=== PATIENT | male | born 1960 | race Caucasian/White ===

== ENCOUNTER 2022-10-29 11:24 | Observation (INO) | payer OTHER, MEDICARE, MEDICAID ==
[~2022-10-29] VITALS: Ht 175 cm; Wt 111.0 kg
[2022-10-29] VITALS (10 sets, daily range): BP systolic 109–152; BP diastolic 77–103
--- NOTE | 2022-10-29 11:51 | ED Chest Pain ---
General Chief Complaint: Chest Pain Stated Complaint: CHEST PAIN Nursing Triage Note: ARRIVED VIA AMB TO ROOM 02 WITH COMPLAINTS OF CHEST PAIN OFF AND ON FOR A WEEK. WORSE TODAY. TOOK X2 NITRO TODAY APPX 1 HR AGO THAT HELPED BUT NOW ITS BACK. ALSO TOOK A FULL STRENGTH ASPIRIN. Source: patient Exam Limitations: no limitations History of Present Illness Date Seen by Provider: Oct 29, 2022 Time Seen by Provider: 11:30 Initial Comments Patient is a 62-year-old male who presents to the emergency department for evaluation of intermittent chest pain for the last week. States he has been taking his nitroglycerin which seems to transiently improve the pain. States the pains have been worse the last 48 hours. He has taken several nitroglycerin today with short-lived improvement in the pain. He also took a full-strength aspirin. Patient denies any worsening of the pain with exertion. Denies any significant shortness of air. Chronically wears 2 L of oxygen at all times. States he has an extensive cardiac history including several catheterizations and at least 3 stents. Patient denies any diaphoresis or worsening dependent edema. Allergies and Home Medications Allergies Coded Allergies: coconut (Verified Allergy, Unknown, 10/29/22) Patient Home Medication List Home Medication List Reviewed: Yes Review of Systems Review of Systems Constitutional: no symptoms reported EENTM: No Symptoms Reported Respiratory: No Symptoms Reported Cardiovascular: See HPI, Chest Pain Gastrointestinal: No Symptoms Reported Genitourinary: No Symptoms Reported Musculoskeletal: no symptoms reported Skin: no symptoms reported Psychiatric/Neurological: No Symptoms Reported Endocrine: No Symptoms Reported Hematologic/Lymphatic: No Symptoms Reported Past Yfnbsed-Qrplco-Psqlyx Hx Patient Social History Tobacco Use?: Yes Smoking Status: Current Everyday Smoker Substance use?: No Alcohol Use?: No Immunizations Up To Date Second COVID19 Vaccination Idris: UNKNOWN COVID19 Vaccine Paramedic: MODERNA Physical Exam Vital Signs Vital Signs - First Documented 10/29/22 11:25 Temp 36.0 Pulse 84 Resp 16 B/P (MAP) 150/103 (119) Pulse Ox 96 O2 Delivery Nasal Cannula O2 Flow Rate 2.00 Capillary Refill : Less Than 3 Seconds Height, Weight, BMI Height: '" Weight: lbs. oz. kg; 36.00 BMI Method: General Appearance: No Apparent Distress, WD/WN HEENT: PERRL/EOMI, TMs Normal, Normal ENT Inspection, Pharynx Normal Neck: Full Range of Motion, Normal Inspection, Non Tender, Supple Respiratory: Chest Non Tender, Lungs Clear, Normal Breath Sounds, No Accessory Muscle Use, No Respiratory Distress Cardiovascular: Regular Rate, Rhythm Gastrointestinal: Non Tender, Soft Neurologic/Psychiatric: Alert, Oriented x3, No Motor/Sensory Deficits, Normal Mood/Affect Skin: Normal Color, Warm/Dry Progress/Results/Core Measures Results/Orders Lab Results Laboratory Tests Test 10/29/22 11:45 Range/Units White Blood Count 8.4 4.3-11.0 10^3/uL Red Blood Count 6.34 H 4.30-5.52 10^6/uL Hemoglobin 17.4 13.3-17.7 g/dL Hematocrit 52 40-54 % Mean Corpuscular Volume 82 80-99 fL Mean Corpuscular Hemoglobin 27 25-34 pg Mean Corpuscular Hemoglobin Concent 33 32-36 g/dL Red Cell Distribution Width 14.5 10.0-14.5 % Platelet Count 220 130-400 10^3/uL Mean Platelet Volume 9.6 9.0-12.2 fL Immature Granulocyte % (Auto) 1 % Neutrophils (%) (Auto) 64 42-75 % Lymphocytes (%) (Auto) 24 12-44 % Monocytes (%) (Auto) 7 0-12 % Eosinophils (%) (Auto) 3 0-10 % Basophils (%) (Auto) 1 0-10 % Neutrophils # (Auto) 5.4 1.8-7.8 10^3/uL Lymphocytes # (Auto) 2.1 1.0-4.0 10^3/uL Monocytes # (Auto) 0.6 0.0-1.0 10^3/uL Eosinophils # (Auto) 0.3 0.0-0.3 10^3/uL Basophils # (Auto) 0.1 0.0-0.1 10^3/uL Immature Granulocyte # (Auto) 0.1 0.0-0.1 10^3/uL Prothrombin Time 12.4 12.2-14.7 SEC INR Comment 0.9 0.8-1.4 Activated Partial Thromboplast Time 30 24-35 SEC Sodium Level 137 135-145 MMOL/L Potassium Level 4.0 3.6-5.0 MMOL/L Chloride Level 105 98-107 MMOL/L Carbon Dioxide Level 22 21-32 MMOL/L Anion Gap 10 5-14 MMOL/L Blood Urea Nitrogen 18 7-18 MG/DL Creatinine 0.88 0.60-1.30 MG/DL Estimat Glomerular Filtration Rate 97 BUN/Creatinine Ratio 20 Glucose Level 158 H 70-105 MG/DL Calcium Level 9.0 8.5-10.1 MG/DL Corrected Calcium 8.8 8.5-10.1 MG/DL Magnesium Level 1.8 1.6-2.4 MG/DL Total Bilirubin 0.8 0.1-1.0 MG/DL Aspartate Amino Transf (AST/SGOT) 16 5-34 U/L Alanine Aminotransferase (ALT/SGPT) 24 0-55 U/L Alkaline Phosphatase 108 40-136 U/L Troponin I < 0.028 <0.028 NG/ML Total Protein 7.2 6.4-8.2 GM/DL Albumin 4.2 3.2-4.5 GM/DL My Orders Orders - ESTRADA SUAREZ [facility] Cbc With Automated Diff (10/29/22 11:47) Magnesium (10/29/22 11:47) Chest 1 View, Ap/Pa Only (10/29/22 11:47) Comprehensive Metabolic Panel (10/29/22 11:47) Protime With Inr (10/29/22 11:47) Partial Thromboplastin Time (10/29/22 11:47) O2 (10/29/22 11:47) Monitor-Rhythm Ecg Trace Only (10/29/22 11:47) Ed Iv/Invasive Line Start (10/29/22 11:47) Troponin I [place] (10/29/22 11:47) Nitroglycerin 0.4 Mg Btl 25's (Nitrostat (10/29/22 12:00) Ed Admission (Communication) (10/29/22 13:12) Medications Given in ED Current Medications Medications Dose Ordered Sig/Ronit Route Start Time Stop Time Status Last Admin Dose Admin Nitroglycerin 0.4 mg UD PRN SL 10/29/22 12:00 10/29/22 12:10 0.4 MG Vital Signs/I&O 10/29/22 10/29/22 11:25 11:25 Temp 36.0 Pulse 84 Resp 16 B/P (MAP) 150/103 (119) Pulse Ox 96 O2 Delivery Nasal Cannula Room Air O2 Flow Rate 2.00 Blood Pressure Mean: 119 Progress Progress Note : Progress Note Patient is nontoxic and well-hydrated on exam. Vital signs are reassuring. Patient is not hypoxic on his home 2 L of oxygen. No tachycardia or hypotension noted. Laboratory evaluation is largely reassuring. Troponin is negative. EKG without acute ischemic change or arrhythmia. However, given patient's high level of risk factors as well as previous coronary artery disease requiring intervention, we will admit for further evaluation and treatment. Dr. Collins with cardiology was consulted and kindly agrees to see the patient in the hospital. Hospitalist kindly agreed to admit. Patient and his are updated on plan of care and understanding verbalized. EKG : EKG Time: 11:36 Rate: 84 Rhythm: Normal Sinus ECG Impression: Nonspecific Changes Consults : Consulting Physician: TIMI COLLINS MD FACP FACC CCDS Consults Notes will see patient in consultation; recommends beta-keara, aspirin, and Plavix or equivalent Departure Impression Primary Impression: Chest pain Qualified Codes: R07.9 - Chest pain, unspecified Disposition: ADMITTED INPATIENT Condition: Improved Admissions Decision to Admit Reason: Admit from ER (General) Decision to Admit/Date: Oct 29, 2022 Time/Decision to Admit Time: 13:10 Departure-Patient Inst. Referrals: GARRISON MONREAL MD (PCP/Family) Primary Care Physician ESTRADA SUAREZ APRN Oct 29, 2022 11:51
[2022-10-29 11:54] LABS: BASOPHILS # (AUTO) 0.1 10^3/uL (0.0-0.1); BASOPHILS % (AUTO) 1 % (0-10); EOSINOPHILS # (AUTO) 0.3 10^3/uL (0.0-0.3); EOSINOPHILS % (AUTO) 3 % (0-10); HEMATOCRIT 52 % (40-54); HEMOGLOBIN 17.4 g/dL (13.3-17.7); LYMPHOCYTES # (AUTO) 2.1 10^3/uL (1.0-4.0); LYMPHOCYTES % (AUTO) 24 % (12-44); MEAN CORPUSCULAR HEMOGLOBIN 27 pg (25-34); MEAN CORPUSCULAR HGB CONC 33 g/dL (32-36); MEAN CORPUSCULAR VOLUME 82 fL (80-99); MEAN PLATELET VOLUME 9.6 fL (9.0-12.2); MONOCYTES # (AUTO) 0.6 10^3/uL (0.0-1.0); MONOCYTES % (AUTO) 7 % (0-12); NEUTROPHILS # (AUTO) 5.4 10^3/uL (1.8-7.8); NEUTROPHILS % (AUTO) 64 % (42-75); PLATELET COUNT 220 10^3/uL (130-400); WHITE BLOOD COUNT 8.4 10^3/uL (4.3-11.0)
[2022-10-29] MEDS ORDERED: NITROGLYCERIN 0.4 MG SL TABS BTL 25'S SL PRN ×2 (12:00→14:45)
[2022-10-29 12:02] LABS: ALBUMIN 4.2 GM/DL (3.2-4.5)
[2022-10-29 12:04] LABS: INR 0.9 (0.8-1.4); PROTHROMBIN TIME PATIENT 12.4 SEC (12.2-14.7)
[2022-10-29 12:05] LABS: TOTAL PROTEIN 7.2 GM/DL (6.4-8.2)
[2022-10-29 12:07] LABS: BILIRUBIN,TOTAL 0.8 MG/DL (0.1-1.0)
[2022-10-29 12:09] LABS: CREATININE SERUM 0.88 MG/DL (0.60-1.30)
[2022-10-29 12:12] LABS: MAGNESIUM 1.8 MG/DL (1.6-2.4)
--- NOTE | 2022-10-29 12:27 | Diagnostic Imaging Report ---
Indication: Chest pain. Findings: Lungs clear. No failure, effusion or pneumothorax. Impression: No acute-appearing abnormality. Dictated by: Dictated on workstation # [id number]
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
[2022-10-29] MEDS ORDERED: ONDANSETRON 4 MG/2 ML (SDV) Z0FRAN IV PRN (14:45)
[2022-10-29] MEDS ORDERED: LACTULOSE SYRUP 10GM/15ML (ENULOSE) 30ML UDC PO PRN (14:45)
[2022-10-29] MEDS ORDERED: BISACODYL 10 MG SUPP (DULCOLAX) PR PRN (14:45)
[2022-10-29] MEDS ORDERED: MILK OF MAGNESIA 400 MG/5 ML 30 ML UDC PO PRN (14:45)
[2022-10-29] MEDS ORDERED: PATIENT MAY USE OWN MEDS, ALL PO SCH ×2 (14:45→17:00)
[2022-10-29] MEDS ORDERED: ANTACID SUSP 30 ML UDC (MYLANTA) PO PRN (14:45)
[2022-10-29] MEDS ORDERED: ALPRAZolam 1 MG (XANAX) TAB PO PRN (14:45)
[2022-10-29] MEDS ORDERED: ACETAMINOPHEN 325 MG TABLET PO PRN (14:45)
[2022-10-29] MEDS ORDERED: MELATONIN 3 MG TABLET PO PRN (14:45)
[2022-10-29] MEDS ORDERED: ONDANSETRON 4 MG (ZOFRAN) ORAL DISSOLVE TAB PO PRN (14:45)
[2022-10-29] MEDS ORDERED: diphenhydrAMINE 50 MG/ML INJ (BENADRYL) IVP PRN (14:45)
[2022-10-29] MEDS ORDERED: polyethylene glycoL POWDER 17 GM (MIRALAX) PACK PO PRN (14:45)
[2022-10-29] MEDS ORDERED: diphenhydrAMINE 25 MG TAB (BENADRYL) PO PRN (14:45)
[2022-10-29] MEDS ORDERED: HYDROmorphone 2 MG/ML VIAL (DILAUDID) IV PRN (14:45)
[2022-10-29] MEDS ORDERED: CALCIUM CARBONATE 500 MG (TUMS) TAB.CHEW PO PRN (14:45)
[2022-10-29] MEDS ORDERED: ENOXAPARIN 40 MG/0.4 ML (LOVENOX) SYR SC SCH (15:00)
[2022-10-29] MEDS ORDERED: NS IV 1000 ML 1,000 ML ONE (15:16)
[2022-10-29] MEDS ORDERED: HEParin (CATH LAB) 2,000 ML IV ONE (15:16)
[2022-10-29] MEDS ORDERED: LIDOCAINE 1% INJ 30 ML (XYLOCAINE) VIAL ONE (15:16)
[2022-10-29] MEDS ORDERED: MIDAZOLAM 5 MG/5 ML (VERSED) VIAL ONE (15:23)
[2022-10-29] MEDS ORDERED: fentaNYL INJ 100 MCG/2 ML AMP ONE (15:23)
[2022-10-29] MEDS ORDERED: NS IV 1000 ML 1,000 ML IV SCH (15:30)
[2022-10-29] MEDS ORDERED: diphenhydrAMINE 50 MG/ML INJ (BENADRYL) ONE (15:38)
[2022-10-29] MEDS ORDERED: HEParin 1000 UNIT/ML (10ML VIAL) FOR BOLUS ONE (15:54)
[2022-10-29] MEDS ORDERED: EPTIFIBATIDE BOLUS 10 ML IV ONE ×2 (15:54→16:02)
[2022-10-29] MEDS: inSUlin ASPART (NovoLOG) 1 UNIT/0.01 ML (CHARGE PER UNIT) SC SCH ×2 (16:00→20:42)
[2022-10-29] MEDS ORDERED: CLOPIDOGREL 300 MG (PLAVIX) TABLET PO ONE (16:26)
[2022-10-29] MEDS ORDERED: ASPIRIN 81 MG CHEW (CHILDREN'S ASA) ONE (16:26)
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
--- NOTE | 2022-10-29 16:52 | Cardiac Procedure Note-CS/ASA ---
Pre-Procedure Note Pre-Op Procedure Note Date of Available H&P: Oct 29, 2022 Date H&P Reviewed: Oct 29, 2022 Time H&P Reviewed: 15:50 History & Physical: H&P Reviewed, No changes noted Conscious Sedation Pre-Proced ASA Score 4 For ASA 3 and 4: Consider anesthesia and medical clearance. Also, for patients with a history of failed moderate sedation consider anesthesia. Airway Lungs Heart ASA score ASA 1: a normal healthy patient ASA 2: a patient with a mild systemic disease (mid diabetes, controlled hypertension, obesity ASA 3: a patient with a severe systemic disease that limits activity (angina, COPD, prior Myocardial infarction) ASA 4: a patient with an incapacitating disease that is a constant threat to life (CHF, renal failure) ASA 5: a moribund patient not expected to survive 24 hrs. (ruptured aneurysm) ASA 6: a declared brain- patient whose organs are being harvested. For emergent operations, add the letter E after the classification Mallampati Classification Grade 2 Sedation Plan Analgesia, Amnesia, Plan communicated to team members, Discussed options with patient/fam, Discussed risks with patient/fam The patient is an appropriate candidate to undergo the planned procedure, sedation, and anesthesia. The patient immediately re-assessed prior to indication. TIMI ALEXANDER MD FACP FAC CCDS Oct 29, 2022 16:52
[2022-10-29] MEDS ORDERED: morphine INJ 4 MG/ML 1 ML (VIAL/SYRINGE) IVP PRN (17:00)
[2022-10-29] MEDS ORDERED: RT-ALBUTEROL/IPRATROPIUM 3 ML (DUONEB) VIAL INH PRN (17:00)
[2022-10-29] MEDS: NS IV 1000 ML 1,000 ML IV SCH (17:07)
[2022-10-29] MEDS ORDERED: PANTOPRAZOLE 40 MG (PROTONIX) VIAL IV NR (17:30)
[2022-10-29] MEDS: morphine INJ 4 MG/ML 1 ML (VIAL/SYRINGE) IVP PRN ×2 (18:03→23:39)
[2022-10-29] MEDS: ANTACID SUSP 30 ML UDC (MYLANTA) PO SCH ×2 (18:03→20:42)
[2022-10-29] MEDS: SENNOSIDES 8.6 MG (SENOKOT) TAB PO SCH (19:30)
[2022-10-29] MEDS: DOCUSATE SODIUM 100 MG (COLACE) CAP PO SCH (19:30)
[2022-10-29] MEDS: RT-ALBUTEROL/IPRATROPIUM 3 ML (DUONEB) VIAL INH SCH (22:28)
[2022-10-30] VITALS: BP 153/70
--- NOTE | 2022-10-30 00:34 | CARDIAC CATHETERIZATION ---
DATE OF SERVICE: 10/29/2022 CARDIAC CATHETERIZATION REPORT INDICATION: The patient is a 62-year-old gentleman who is known to have coronary artery disease, who presents with acute coronary syndrome, unstable angina pectoris. In the hospital, he continued to have recurrent chest pains, it would improve with nitroglycerin, but would then recur. Due to continuing symptoms of unstable angina, urgent cardiac catheterization was recommended. Informed consent was obtained. DESCRIPTION OF PROCEDURE: He was brought to the cardiac catheterization laboratory in a fasting state. Right groin was prepared and draped in the usual sterile fashion. A 1% lidocaine was used for local anesthesia. Modified Seldinger technique was used to advance a 5-Ethiopian sheath in the right femoral artery. A 5-Ethiopian JR4 catheter was used for left coronary angiography. A 5-Ethiopian JR4 catheter was used for right coronary angiography. A 5-Ethiopian pigtail catheter was used for left heart catheterization and left ventricular angiography. Subsequently, percutaneous intervention was carried out to the left anterior descending artery and it is described below. PERCUTANEOUS INTERVENTION TO THE LEFT ANTERIOR DESCENDING: We exchanged the sheath over a wire for a 6-Ethiopian sheath. We gave 5000 units of intravenous heparin and a double bolus of Integrilin during the procedure. We used a 6-Ethiopian JL4 guide catheter to engage the left coronary artery. We advanced a BMW wire to cross the lesion in the left anterior descending artery and it was placed in the distal vessel. The stenosis prior to intervention was 95%. The distal flow prior to intervention was FAIZA 2. We carried out balloon angioplasty in the proximal left anterior descending at the site of the lesion with a 2.5 x 5 mm balloon and we then stented the vessel with Skypoint 2.75 x 15 mm stent that was deployed at 15 atmospheres. The stent slightly overlapped the previously stented segment in the proximal and mid portions of the left anterior descending. Following deployment of the stent, there is 0% residual stenosis and the distal flow is FAIZA 3. The patient tolerated the procedure well. This is a right dominant coronary system. Angioplasty equipment was removed. Angiography of the right femoral artery was carried out of the sheath. Mynx was used to achieve hemostasis. HEMODYNAMICS: Left ventricular end diastolic pressure following coronary angiography was 13 mmHg. There was no significant pressure gradient on pullback across the aortic valve. CORONARY ANGIOGRAPHY: Left main coronary artery is free of significant disease. Left anterior descending artery had 20-30% ostial stenosis and 95% proximal stenosis, proximal to the proximal end of a long stented segment in the proximal and mid left anterior descending. This stenosis was successfully stented with a Skypoint 2.75 x 15 mm stent that reduced the stenosis to 0% residual and improved distal flow from FAIZA 2 to FAIZA 3. The distal left anterior descending artery has mild plaques, which were not intervened on. The left circumflex artery has mild plaques. The right coronary artery is dominant and exhibits mild plaques. LEFT VENTRICULAR ANGIOGRAPHY: Left ventricular angiography was carried out in the right anterior oblique projection. Global left ventricular systolic function is normal. Left ventricular ejection fraction is approximately 55-60%. CONCLUSION: 1. Coronary artery disease, primarily consisting of a 95% proximal stenosis of the left anterior descending, which was successfully stented with Skypoint 2.75 x 15 mm stent. The stent slightly overlapped a long stented segment in the left anterior descending. The stented segment shows mild plaques. The distal left anterior descending artery shows mild plaques. Left circumflex and right coronary arteries show mild plaques. Right coronary artery is dominant. 2. Left ventricular end-diastolic pressure 13 mmHg. 3. Left ventricular ejection fraction 55-60%. Job ID: [id number] DocumentID: [id number] Dictated Date: 10/29/2022 17:01:13 Manager Marketing Sales Date: 10/30/2022 00:34:00 Dictated By: TIMI ALEXANDER MD; JENNIFER; JAZP; JAZC; CHANCE
[2022-10-30 03:59] VITALS: BP 100/59
[2022-10-30 05:33] LABS: BASOPHILS # (AUTO) 0.1 10^3/uL (0.0-0.1); BASOPHILS % (AUTO) 1 % (0-10); EOSINOPHILS # (AUTO) 0.3 10^3/uL (0.0-0.3); EOSINOPHILS % (AUTO) 3 % (0-10); HEMATOCRIT 47 % (40-54); HEMOGLOBIN 15.7 g/dL (13.3-17.7); LYMPHOCYTES # (AUTO) 2.3 10^3/uL (1.0-4.0); LYMPHOCYTES % (AUTO) 23 % (12-44); MEAN CORPUSCULAR HEMOGLOBIN 28 pg (25-34); MEAN CORPUSCULAR HGB CONC 33 g/dL (32-36); MEAN CORPUSCULAR VOLUME 83 fL (80-99); MEAN PLATELET VOLUME 9.9 fL (9.0-12.2); MONOCYTES # (AUTO) 0.8 10^3/uL (0.0-1.0); MONOCYTES % (AUTO) 8 % (0-12); NEUTROPHILS # (AUTO) 6.2 10^3/uL (1.8-7.8); NEUTROPHILS % (AUTO) 64 % (42-75); PLATELET COUNT 213 10^3/uL (130-400); WHITE BLOOD COUNT 9.7 10^3/uL (4.3-11.0)
[2022-10-30 05:41] LABS: ALBUMIN 3.8 GM/DL (3.2-4.5); BILIRUBIN,TOTAL 0.6 MG/DL (0.1-1.0); CALCIUM 8.8 MG/DL (8.5-10.1); CREATININE SERUM 0.96 MG/DL (0.60-1.30); POTASSIUM 4.1 MMOL/L (3.6-5.0); TOTAL PROTEIN 6.6 GM/DL (6.4-8.2)
[2022-10-30] MEDS: ANTACID SUSP 30 ML UDC (MYLANTA) PO SCH ×2 (06:00→11:18)
[2022-10-30] MEDS: NS IV 1000 ML 1,000 ML IV SCH (06:20)
--- NOTE | 2022-10-30 06:27 | Short Stay Summary-Hospitalist ---
History of Present Illness HPI/Chief Complaint Chief complaint: Chest pain HPI: This is a 62-year-old male with known history of CAD who presented to the ER with chest pain. He underwent cardiac catheterization with intervention. He is doing well now and denies any pain and wants to go home. Source: patient, old records Exam Limitations: no limitations Date Seen 10/30/22 Time Seen by a Provider: 11:00 Attending Physician Valentina Cedillo MD PCP Admitting Physician: Rose Cota DO Attending Physician: Rose Cota DO Referring Physician TIMI ALEXANDER MD FACP FAC CCDS Date of Admission Oct 29, 2022 at 13:13 Home Medications & Allergies Home Medications Reviewed patient Home Medication Reconciliation performed by pharmacy medication reconciliations certified ophthalmic medical technician and/or nursing. Patients Allergies have been reviewed. Allergies Allergies Coded Allergies coconut (Verified Allergy, Unknown, 10/29/22) Past Fiwgqup-Uizgyw-Vkqoak Hx Patient Social History Marrital Status: Employed/Student: retired Tobacco Use?: Yes Tobacco type used: Cigarettes Smoking Status: Current Everyday Smoker Substance use?: No Alcohol Use?: No Pt feels they are or have been: No Immunizations Up To Date Second COVID19 Vaccination Idris: UNKNOWN Current Status Advance Directives: Yes Advance Directive Location: Family to bring in copy Communicates: Verbally Primary Language: Tajik Preferred Spoken Language: Tajik Is interpretation needed?: No Sensory deficits: Vision impairment, Hearing impairment Implanted or Applied Medical D: Stents Past Medical History Coronary Artery Disease, High Cholesterol, Hypertension Review of Systems Constitutional: see HPI Physical Exam Physical Exam Vital Signs Vital Signs - First Documented 10/29/22 10/29/22 11:25 17:13 Temp 36.0 Pulse 84 Resp 16 B/P (MAP) 150/103 (119) Pulse Ox 96 O2 Delivery Nasal Cannula O2 Flow Rate 2.00 FiO2 21 Capillary Refill : Less Than 3 Seconds Height, Weight, BMI Height: '" Weight: lbs. oz. kg; 36.24 BMI Method: General Appearance: No Apparent Distress, WD/WN, Chronically ill, Obese HEENT: PERRL/EOMI, TMs Normal, Normal ENT Inspection, Pharynx Normal Neck: Full Range of Motion, Normal Inspection, Non Tender, Supple Respiratory: Chest Non Tender, Lungs Clear, Normal Breath Sounds, No Accessory Muscle Use, No Respiratory Distress Cardiovascular: Regular Rate, Rhythm Gastrointestinal: Non Tender, Soft Neurologic/Psychiatric: Alert, Oriented x3, No Motor/Sensory Deficits, Normal Mood/Affect Skin: Normal Color, Warm/Dry Results Results/Procedures Labs Laboratory Tests 10/29/22 11:45 10/30/22 04:45 Patient resulted labs reviewed. Short Stay Diagnosis Discharge Diagnosis-Short Stay Admission Diagnosis NSTEMI Final Discharge Diagnosis NSTEMI Cardiac catheterization with intervention Conclusion Plan Discharge home ROSE COTA DO Oct 30, 2022 06:27
[2022-10-30] MEDS: inSUlin ASPART (NovoLOG) 1 UNIT/0.01 ML (CHARGE PER UNIT) SC SCH ×2 (06:41→11:18)
[2022-10-30] MEDS: RT-ALBUTEROL/IPRATROPIUM 3 ML (DUONEB) VIAL INH SCH (07:08)
[2022-10-30 07:57] VITALS: BP 121/80
[2022-10-30] MEDS: DOCUSATE SODIUM 100 MG (COLACE) CAP PO SCH (08:44)
[2022-10-30] MEDS: SENNOSIDES 8.6 MG (SENOKOT) TAB PO SCH (08:45)
[2022-10-30] MEDS ORDERED: PANTOPRAZOLE 40 MG (PROTONIX) TAB PO SCH (09:00)
[2022-10-30] MEDS ORDERED: ASPIRIN E.C. 81 MG (ECOTRIN) TAB PO SCH (09:00)
[2022-10-30] MEDS ORDERED: CLOPIDOGREL 75 MG (PLAVIX) TABLET PO SCH (09:00)
[2022-10-30] MEDS ORDERED: TIZA-186 PO (09:55)
[2022-10-30] MEDS ORDERED: OMEP20CA18 PO (09:55)
[2022-10-30] MEDS ORDERED: BUPR1PAT2 TD (09:55)
[2022-10-30] MEDS ORDERED: CANA100T PO (09:55)
[2022-10-30] MEDS ORDERED: DICL50TA6 PO (09:55)
[2022-10-30] MEDS ORDERED: DULA1.5P2 SQ (09:55)
[2022-10-30] MEDS ORDERED: MTP25TSR PO (10:59)
[2022-10-30] MEDS ORDERED: PANT40TA52 PO (10:59)
[2022-10-30] MEDS ORDERED: CLOP75TA28 PO (10:59)
[2022-10-30] MEDS ORDERED: ATOR80TA76 PO (10:59)
[2022-10-30] MEDS ORDERED: NITR0.4T42 SL (10:59)
[2022-10-30] MEDS ORDERED: ASPI-1238 PO (10:59)
[2022-10-30 11:19] VITALS: BP 124/76
[2022-10-30 11:52] VITALS: BP 124/76
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
== END 2022-10-30 10:58 | disposition home or self-care (01) ==
LOC: EDUNIT# 11:24 → ER 11:28 → UNDOADMOB 13:13 → CSD 13:13 → UNDODISOB 10-30 11:55
PROVIDERS: ADMIT Internal Medicine; ATTEND Internal Medicine
DX: I25.110 Atherosclerotic heart disease of native coronary artery with unstable angina pectoris (principal); I50.9 Heart failure, unspecified; I48.0 Paroxysmal atrial fibrillation; G47.33 Obstructive sleep apnea (adult) (pediatric); K21.9 Gastro-esophageal reflux disease without esophagitis; J44.9 Chronic obstructive pulmonary disease, unspecified; F17.210 Nicotine dependence, cigarettes, uncomplicated; I21.4 Non-ST elevation (NSTEMI) myocardial infarction; Z86.73 Personal history of transient ischemic attack (TIA), and cerebral infarction without residual deficits
CPT/HCPCS: 36415; 71045; 80053; 80061; 82947; 83735; 84443; 84484; 85025; 85610; 85730; 93005; 93041; 93306; 93458; 96375; 96376; G0378

== ENCOUNTER 2022-11-03 13:46 | Observation (INO) | payer OTHER, MEDICARE, MEDICAID ==
[~2022-11-03] VITALS: Ht 175.3 cm; Wt 108.6 kg
[~2022-11-03 13:46] MED LIST: ASPI-1238 PO; ATOR80TA76 PO; BUPR1PAT2 TD; CANA100T PO; CLOP75TA28 PO; DICL50TA6 PO; DULA1.5P2 SQ; MTP25TSR PO; NITR0.4T42 SL; OMEP20CA18 PO; PANT40TA52 PO; TIZA-186 PO
[2022-11-03 14:03] LABS: BASOPHILS # (AUTO) 0.1 10^3/uL (0.0-0.1); BASOPHILS % (AUTO) 1 % (0-10); EOSINOPHILS # (AUTO) 0.4 10^3/uL (0.0-0.3); EOSINOPHILS % (AUTO) 4 % (0-10); HEMATOCRIT 49 % (40-54); LYMPHOCYTES # (AUTO) 2.1 10^3/uL (1.0-4.0); LYMPHOCYTES % (AUTO) 21 % (12-44); MEAN CORPUSCULAR HEMOGLOBIN 28 pg (25-34); MEAN CORPUSCULAR HGB CONC 33 g/dL (32-36); MEAN CORPUSCULAR VOLUME 84 fL (80-99); MEAN PLATELET VOLUME 9.6 fL (9.0-12.2); MONOCYTES # (AUTO) 0.8 10^3/uL (0.0-1.0); MONOCYTES % (AUTO) 8 % (0-12); NEUTROPHILS # (AUTO) 6.6 10^3/uL (1.8-7.8); NEUTROPHILS % (AUTO) 66 % (42-75); PLATELET COUNT 236 10^3/uL (130-400)
[2022-11-03 14:14] LABS: ALBUMIN 4.2 GM/DL (3.2-4.5); INR 0.9 (0.8-1.4); PROTHROMBIN TIME PATIENT 12.5 SEC (12.2-14.7)
[2022-11-03 14:15] LABS: POTASSIUM 3.9 MMOL/L (3.6-5.0)
[2022-11-03 14:16] LABS: CALCIUM 9.1 MG/DL (8.5-10.1)
[2022-11-03 14:19] LABS: BILIRUBIN,TOTAL 0.8 MG/DL (0.1-1.0)
[2022-11-03 14:20] LABS: CREATININE SERUM 1.04 MG/DL (0.60-1.30)
[2022-11-03 14:23] LABS: MAGNESIUM 1.9 MG/DL (1.6-2.4)
[2022-11-03 14:34] LABS: CREATINE KINASE MB 6.6 NG/ML (<6.6)
[2022-11-03] MEDS ORDERED: ASPIRIN 81 MG CHEW (CHILDREN'S ASA) PO ONE (14:45)
[2022-11-03] MEDS ORDERED: NITROGLYCERIN 0.4 MG SL TABS BTL 25'S SL PRN (14:45)
--- NOTE | 2022-11-03 14:48 | Diagnostic Imaging Report ---
INDICATION: Pain. COMPARISON: 10/29/2022. FINDINGS: Lungs are clear. No failure, effusion, or pneumothorax. IMPRESSION: Negative. Dictated by: Dictated on workstation # [id number]
--- NOTE | 2022-11-03 15:09 | ED Chest Pain ---
General Chief Complaint: Chest Pain Stated Complaint: CHEST PAINS Source: patient Exam Limitations: no limitations History of Present Illness Date Seen by Provider: Nov 03, 2022 Time Seen by Provider: 14:50 Allergies and Home Medications Allergies Coded Allergies: coconut (Verified Allergy, Unknown, 10/29/22) Patient Home Medication List Home Medication List Reviewed: Yes Aspirin (Aspirin EC) 81 Mg Tablet.dr, 81 MG PO DAILY Prescribed by: ESTELA TRIPLETT on 10/30/22 1059 Atorvastatin Calcium (Atorvastatin Calcium) 80 Mg Tablet, 80 MG PO HS Prescribed by: ESTELA TRIPLETT on 10/30/22 1059 Buprenorphine (Butrans) 10 Mcg/Hour Patch.tdwk, 1 EACH TD WEEK Prescribed by: RUDDY GUTIERREZ on 10/30/22 09 Canagliflozin (Invokana) 100 Mg Tablet, 100 MG PO DAILY Prescribed by: RUDDY GUTIERREZ on 10/30/22954 Clopidogrel Bisulfate (Clopidogrel) 75 Mg Tablet, 75 MG PO DAILY Prescribed by: ESTELA TRIPLETT on 10/30/22 105 Diclofenac Sodium (Diclofenac Sodium) 50 Mg Tablet.dr, 50 MG PO QID Prescribed by: RUDDY GUTIERREZ on 10/30/22 09 Dulaglutide (Trulicity) 1.5 Mg/0.5 Ml Pen.injctr, 1.5 MG SQ WEEK Prescribed by: RUDDY GUTIERREZ on 10/30/22954 Metoprolol Succinate (Metoprolol Succinate) 25 Mg Tab.er.24h, 25 MG PO DAILY Prescribed by: ESTELA TRIPLETT on 10/30/22 105 Nitroglycerin (Nitroglycerin) 0.4 Mg Tab.subl, 0.4 MG SL UD PRN for CHEST PAIN (ANGINA) Prescribed by: ESTELA TRIPLETT on 10/30/22 105 Pantoprazole Sodium (Pantoprazole Sodium) 40 Mg Tablet.dr, 40 MG PO DAILY Prescribed by: ESTELA TRIPLETT on 10/30/22 1059 Tizanidine HCl (Tizanidine HCl) 4 Mg Tablet, 4 MG PO TID PRN for MUSCLE SPASMS Prescribed by: RUDDY GUTIERREZ on 10/30/22 09 Discontinued Medications Omeprazole (Omeprazole) 20 Mg Capsule.dr, 20 MG PO DAILY Prescribed by: RUDDY GUTIERREZ on 10/30/22954 Review of Systems Review of Systems Constitutional: see HPI Past Ooamgnh-Duyzup-Mtrauc Hx Patient Social History Tobacco Use?: Yes Substance use?: No Alcohol Use?: No Pt feels they are or have been: No Immunizations Up To Date Influenza Vaccine Up-to-Date: No; Not Current First/Initial COVID19 Vaccinat: UNKNOWN Second COVID19 Vaccination Idris: UNKNOWN Third COVID19 Vaccination Date: UNKNOWN Past Medical History Surgery/Hospitalization HX: STENTS, SHOULDER, ANKLE, FACIAL SURGERY, HERNIA MESH, BACK X4 HTN, DM, HLD, ASTHMA, Coronary Artery Disease, High Cholesterol, Hypertension Physical Exam Vital Signs Capillary Refill : Height, Weight, BMI Height: '" Weight: lbs. oz. kg; 36.24 BMI Method: Progress/Results/Core Measures Results/Orders Lab Results Laboratory Tests Test 11/03/22 13:54 Range/Units White Blood Count 10.0 4.3-11.0 10^3/uL Red Blood Count 5.78 H 4.30-5.52 10^6/uL Hemoglobin 16.0 13.3-17.7 g/dL Hematocrit 49 40-54 % Mean Corpuscular Volume 84 80-99 fL Mean Corpuscular Hemoglobin 28 25-34 pg Mean Corpuscular Hemoglobin Concent 33 32-36 g/dL Red Cell Distribution Width 14.6 H 10.0-14.5 % Platelet Count 236 130-400 10^3/uL Mean Platelet Volume 9.6 9.0-12.2 fL Immature Granulocyte % (Auto) 1 % Neutrophils (%) (Auto) 66 42-75 % Lymphocytes (%) (Auto) 21 12-44 % Monocytes (%) (Auto) 8 0-12 % Eosinophils (%) (Auto) 4 0-10 % Basophils (%) (Auto) 1 0-10 % Neutrophils # (Auto) 6.6 1.8-7.8 10^3/uL Lymphocytes # (Auto) 2.1 1.0-4.0 10^3/uL Monocytes # (Auto) 0.8 0.0-1.0 10^3/uL Eosinophils # (Auto) 0.4 H 0.0-0.3 10^3/uL Basophils # (Auto) 0.1 0.0-0.1 10^3/uL Immature Granulocyte # (Auto) 0.1 0.0-0.1 10^3/uL Prothrombin Time 12.5 12.2-14.7 SEC INR Comment 0.9 0.8-1.4 Activated Partial Thromboplast Time 30 24-35 SEC D-Dimer 0.40 0.00-0.49 UG/ML Sodium Level 140 135-145 MMOL/L Potassium Level 3.9 3.6-5.0 MMOL/L Chloride Level 105 98-107 MMOL/L Carbon Dioxide Level 26 21-32 MMOL/L Anion Gap 9 5-14 MMOL/L Blood Urea Nitrogen 15 7-18 MG/DL Creatinine 1.04 0.60-1.30 MG/DL Estimat Glomerular Filtration Rate 81 BUN/Creatinine Ratio 14 Glucose Level 136 H 70-105 MG/DL Calcium Level 9.1 8.5-10.1 MG/DL Corrected Calcium 8.9 8.5-10.1 MG/DL Magnesium Level 1.9 1.6-2.4 MG/DL Total Bilirubin 0.8 0.1-1.0 MG/DL Aspartate Amino Transf (AST/SGOT) 14 5-34 U/L Alanine Aminotransferase (ALT/SGPT) 27 0-55 U/L Alkaline Phosphatase 97 40-136 U/L Total Creatine Kinase 180 30-200 U/L Creatine Kinase MB 6.6 *H <6.6 NG/ML Myoglobin 131.7 H 10.0-92.0 NG/ML Troponin I < 0.028 <0.028 NG/ML B-Type Natriuretic Peptide 11.4 <100.0 PG/ML Total Protein 7.0 6.4-8.2 GM/DL Albumin 4.2 3.2-4.5 GM/DL Lipase 33 8-78 U/L My Orders Orders - HERBERT [employer] APPROACH TECHNICIAN Cbc With Automated Diff (11/03/22 13:52) Magnesium (11/03/22 13:52) Chest 1 View, Ap/Pa Only (11/03/22 13:52) Ekg Tracing (11/03/22 13:52) Comprehensive Metabolic Panel (11/03/22 13:52) Myoglobin Serum (11/03/22 13:52) Protime With Inr (11/03/22 13:52) Partial Thromboplastin Time (11/03/22 13:52) O2 (11/03/22 13:52) Monitor-Rhythm Ecg Trace Only (11/03/22 13:52) Ed Iv/Invasive Line Start (11/03/22 13:52) Creatine Kinase (11/03/22 13:52) Creatine Kinase Mb (11/03/22 13:52) Lipase (11/03/22 13:52) Bnp [place] (11/03/22 13:52) Fibrin Degradation Products (11/03/22 13:52) Troponin I [place] (11/03/22 13:52) Aspirin Chewable Tablet (Baby Aspirin Ch (11/03/22 14:45) Nitroglycerin 0.4 Mg Btl 25's (Nitrostat (11/03/22 14:45) Medications Given in ED Current Medications Medications Dose Ordered Sig/Ronit Route Start Time Stop Time Status Last Admin Dose Admin Aspirin 234 mg ONCE ONCE PO 11/03/22 14:45 11/03/22 14:46 DC 11/03/22 14:47 243 MG Nitroglycerin 1 TAB Q 5 MIN X 3 NEEDED PRN SL 11/03/22 14:45 11/03/22 14:47 0.4 MG Departure Departure-Patient Inst. Referrals: GARRISON MONREAL MD (PCP/Family) Primary Care Physician HER[employer] APPRO[employer] TECHNICIAN Nov 03, 2022 15:09
[2022-11-03] MEDS ORDERED: FAMOTIDINE 20 MG (PEPCID) TABLET PO PRN (16:00)
[2022-11-03] MEDS ORDERED: PANTOPRAZOLE 40 MG (PROTONIX) TAB PO NR (16:00)
[2022-11-03] MEDS ORDERED: FAMOTIDINE 20 MG (PEPCID) TABLET PO NR (16:00)
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
[2022-11-03 16:59] VITALS: BP 123/84
[2022-11-03] MEDS: ANTACID SUSP 30 ML UDC (MYLANTA) PO SCH ×2 (17:00→21:25)
[2022-11-03] MEDS ORDERED: PATIENT MAY USE OWN MEDS, ALL PO SCH (17:00)
[2022-11-03] MEDS ORDERED: morphine INJ 4 MG/ML 1 ML (VIAL/SYRINGE) IV PRN (17:00)
[2022-11-03] MEDS ORDERED: RT-ALBUTEROL/IPRATROPIUM 3 ML (DUONEB) VIAL INH PRN (17:15)
[2022-11-03] MEDS ORDERED: ISOSORBIDE MONONITRATE 30 MG (IMDUR) TAB PO NR (18:15)
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
[2022-11-03] MEDS ORDERED: ACETAMINOPHEN 500 MG TAB (TYLENOL) PO PRN (18:45)
[2022-11-03] MEDS: NITROGLYCERIN 0.4 MG SL TABS BTL 25'S SL PRN ×2 (22:48→22:58)
[2022-11-03 23:32] VITALS: BP 105/75
[2022-11-04 03:30] VITALS: BP 109/53
[2022-11-04 05:34] LABS: ALBUMIN 3.9 GM/DL (3.2-4.5)
[2022-11-04 05:35] LABS: POTASSIUM 4.2 MMOL/L (3.6-5.0)
[2022-11-04 05:36] LABS: CALCIUM 8.9 MG/DL (8.5-10.1)
[2022-11-04 05:37] LABS: TOTAL PROTEIN 6.4 GM/DL (6.4-8.2)
[2022-11-04 05:38] LABS: BASOPHILS # (AUTO) 0.1 10^3/uL (0.0-0.1); BASOPHILS % (AUTO) 1 % (0-10); EOSINOPHILS # (AUTO) 0.4 10^3/uL (0.0-0.3); EOSINOPHILS % (AUTO) 4 % (0-10); HEMATOCRIT 46 % (40-54); HEMOGLOBIN 15.2 g/dL (13.3-17.7); LYMPHOCYTES # (AUTO) 2.1 10^3/uL (1.0-4.0); LYMPHOCYTES % (AUTO) 21 % (12-44); MEAN CORPUSCULAR HEMOGLOBIN 28 pg (25-34); MEAN CORPUSCULAR HGB CONC 33 g/dL (32-36); MEAN CORPUSCULAR VOLUME 85 fL (80-99); MEAN PLATELET VOLUME 9.8 fL (9.0-12.2); MONOCYTES # (AUTO) 0.8 10^3/uL (0.0-1.0); MONOCYTES % (AUTO) 8 % (0-12); NEUTROPHILS # (AUTO) 6.4 10^3/uL (1.8-7.8); NEUTROPHILS % (AUTO) 65 % (42-75); PLATELET COUNT 213 10^3/uL (130-400); WHITE BLOOD COUNT 9.9 10^3/uL (4.3-11.0)
[2022-11-04 05:39] LABS: BILIRUBIN,TOTAL 0.6 MG/DL (0.1-1.0)
[2022-11-04 05:41] LABS: CREATININE SERUM 0.97 MG/DL (0.60-1.30)
[2022-11-04 07:47] VITALS: BP 107/63
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
[2022-11-04] MEDS ORDERED: ISOS60TA63 PO (08:21)
[2022-11-04] MEDS: ANTACID SUSP 30 ML UDC (MYLANTA) PO SCH (08:49)
[2022-11-04] MEDS ORDERED: ISOSORBIDE MONONITRATE 60 MG (IMDUR) TAB PO SCH (09:00)
[2022-11-04] MEDS ORDERED: PHARMACY TO DOSE SQ SCH (09:00)
[2022-11-04] MEDS ORDERED: ASPIRIN 81 MG CHEW (CHILDREN'S ASA) PO SCH (09:00)
[2022-11-04] MEDS ORDERED: PANTOPRAZOLE 40 MG (PROTONIX) TAB PO SCH (09:00)
[2022-11-04] MEDS ORDERED: ENOXAPARIN 40 MG/0.4 ML (LOVENOX) SYR SC SCH (09:00)
[2022-11-04] MEDS ORDERED: ASPIRIN E.C. 81 MG (ECOTRIN) TAB PO SCH (09:00)
[2022-11-04] MEDS ORDERED: CLOPIDOGREL 75 MG (PLAVIX) TABLET PO SCH (09:00)
[2022-11-04] MEDS ORDERED: TIZA-186 PO (11:10)
[2022-11-04] MEDS ORDERED: CLOP75TA28 PO (11:10)
[2022-11-04] MEDS ORDERED: ACET-2267 PO (11:10)
[2022-11-04] MEDS ORDERED: ASPI-1238 PO (11:10)
[2022-11-04] MEDS ORDERED: DIPH25TA65 PO (11:10)
[2022-11-04] MEDS ORDERED: RT-ALBUINH INH (11:10)
[2022-11-04] MEDS ORDERED: MTP25TSR PO (11:10)
[2022-11-04] MEDS ORDERED: PANT40TA52 PO (11:10)
[2022-11-04] MEDS ORDERED: ATOR80TA76 PO (11:10)
[2022-11-04] MEDS ORDERED: DULA1.5P2 SQ (11:10)
[2022-11-04] MEDS ORDERED: DICL50TA6 PO (11:10)
[2022-11-04] MEDS ORDERED: CANA100T PO (11:10)
[2022-11-04] MEDS ORDERED: BUPR1PAT20 TD (11:10)
[2022-11-04] MEDS ORDERED: BUDE10.2 IH (11:10)
[2022-11-04] MEDS ORDERED: ALB0.5V INH (11:10)
[2022-11-04] MEDS ORDERED: DOCU-26 PO (11:10)
--- NOTE | 2022-11-04 11:16 | Short Stay Summary ---
HPI History of Present Illness: 62 yo M that presented with worsening chest pain. He was here on Tuesday and stents placed by Dr Collins. CE in the ER were normal. States that he was sitting in his chair when he had the chest pain. He was alittle short of breath. Denies any pain in his arm or neck. Source: patient Exam Limitations: no limitations Date seen by provider: Nov 04, 2022 Time Seen by Provider: 10:15 Attending Physician Valentina Cedillo MD PCP Admitting Physician: Yi Muller MD Attending Physician: Yi Muller MD Consult Date of Admission Nov 03, 2022 at 16:04 Home Medications Home Medications Reviewed patient Home Medication Reconciliation performed by pharmacy medication reconciliations senior controls technician and/or nursing. Patients Allergies have been reviewed. 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[employer]) Past Medical History CAD with stents HTN NIDDM HLD ROD Tobacco dependence Review of Systems ([facility]) Constitutional: no symptoms reported; No chills, No dizziness, No fever EENTM: no symptoms reported; No mouth pain, No nose congestion, No nose pain Respiratory: No cough; short of breath Cardiovascular: chest pain (resolved this AM); No palpitations Gastrointestinal: no symptoms reported; No abdominal pain, No constipation, No diarrhea, No nausea, No vomiting Genitourinary: no symptoms reported; No dysuria, No frequency, No hematuria Musculoskeletal: no symptoms reported; No back pain, No joint pain, No muscle pain Skin: no symptoms reported Psychiatric/Neurological: No Symptoms Reported Reviewed Test Results Reviewed Test Results Lab Laboratory Tests Test 11/04/22 05:17 Range/Units White Blood Count 9.9 4.3-11.0 10^3/uL Red Blood Count 5.49 4.30-5.52 10^6/uL Hemoglobin 15.2 13.3-17.7 g/dL Hematocrit 46 40-54 % Mean Corpuscular Volume 85 80-99 fL Mean Corpuscular Hemoglobin 28 25-34 pg Mean Corpuscular Hemoglobin Concent 33 32-36 g/dL Red Cell Distribution Width 14.6 H 10.0-14.5 % Platelet Count 213 130-400 10^3/uL Mean Platelet Volume 9.8 9.0-12.2 fL Immature Granulocyte % (Auto) 1 % Neutrophils (%) (Auto) 65 42-75 % Lymphocytes (%) (Auto) 21 12-44 % Monocytes (%) (Auto) 8 0-12 % Eosinophils (%) (Auto) 4 0-10 % Basophils (%) (Auto) 1 0-10 % Neutrophils # (Auto) 6.4 1.8-7.8 10^3/uL Lymphocytes # (Auto) 2.1 1.0-4.0 10^3/uL Monocytes # (Auto) 0.8 0.0-1.0 10^3/uL Eosinophils # (Auto) 0.4 H 0.0-0.3 10^3/uL Basophils # (Auto) 0.1 0.0-0.1 10^3/uL Immature Granulocyte # (Auto) 0.1 0.0-0.1 10^3/uL Sodium Level 137 135-145 MMOL/L Potassium Level 4.2 3.6-5.0 MMOL/L Chloride Level 105 98-107 MMOL/L Carbon Dioxide Level 20 L 21-32 MMOL/L Anion Gap 12 5-14 MMOL/L Blood Urea Nitrogen 16 7-18 MG/DL Creatinine 0.97 0.60-1.30 MG/DL Estimat Glomerular Filtration Rate 88 BUN/Creatinine Ratio 16 Glucose Level 170 H 70-105 MG/DL Calcium Level 8.9 8.5-10.1 MG/DL Corrected Calcium 9.0 8.5-10.1 MG/DL Total Bilirubin 0.6 0.1-1.0 MG/DL Aspartate Amino Transf (AST/SGOT) 13 5-34 U/L Alanine Aminotransferase (ALT/SGPT) 24 0-55 U/L Alkaline Phosphatase 79 40-136 U/L Total Protein 6.4 6.4-8.2 GM/DL Albumin 3.9 3.2-4.5 GM/DL Radiology NAME: LETICIA HUERTA [facility] REC#: [id number] PT STATUS: REG ER : 1960 PHYSICIAN: HERBERT WEIR MAINTENANCE SERVICE DISPATCHER ADMIT DATE: 11/03/22/ER Signed Date of Exam:11/03/22 CHEST 1 VIEW, AP/PA ONLY INDICATION: Pain. COMPARISON: 10/29/2022. FINDINGS: Lungs are clear. No failure, effusion, or pneumothorax. IMPRESSION: Negative. Dictated by: Dictated on workstation # [id number] Dict: 11/03/22 1442 Trans: 11/03/22 1523 [id number] Interpreted by: CLIFF GIORDANO Electronically signed by: CLIFF GIORDANO 11/03/22 1523 Physical Exam-([facility]) Physical Exam Vital Signs VS - Last 72 Hours, by Label 11/03/22 11/03/22 11/03/22 11/03/22 13:50 15:40 16:45 16:59 Temp 36.0 36.0 36.0 Pulse 72 68 62 68 Resp 20 20 B/P (MAP) 124/86 (99) 123/84 Pulse Ox 96 97 97 O2 Delivery Nasal Cannula Nasal Cannula O2 Flow Rate 2.00 2.00 2.00 11/03/22 11/03/22 11/03/22 11/03/22 19:23 19:41 20:00 20:00 Temp 36.7 Pulse 74 Pulse Ox 98 98 O2 Delivery Nasal Cannula Nasal Cannula O2 Flow Rate 2.00 2.00 11/03/22 11/04/22 11/04/22 11/04/22 23:32 01:13 03:30 07:00 Temp 36.7 36.6 Pulse 73 68 67 62 Resp 16 22 B/P (MAP) 105/75 (85) 109/53 (71) Pulse Ox 95 98 O2 Delivery Nasal Cannula Nasal Cannula O2 Flow Rate 2.00 2.00 11/04/22 11/04/22 11/04/22 07:47 08:00 08:24 Temp 36.1 Pulse 53 Resp 17 B/P (MAP) 107/63 (78) Pulse Ox 99 98 99 O2 Delivery Nasal Cannula Nasal Cannula Nasal Cannula O2 Flow Rate 2.00 2.00 2.00 Capillary Refill : General Appearance: WD/WN, no apparent distress HEENT: PERRL/EOMI Neck: non-tender, full range of motion, supple Respiratory: chest non-tender, normal breath sounds, no respiratory distress, no accessory muscle use, wheezing Cardiovascular: normal peripheral pulses, regular rate, rhythm, no edema, no murmur Gastrointestinal: normal bowel sounds, non tender, soft Back: no CVA tenderness, no vertebral tenderness Extremities: normal range of motion, no calf tenderness, normal capillary refill Neurologic/Psychiatric: 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, no motor/sensory deficits, alert, normal mood/affect, oriented x 3 Skin: normal color, warm/dry Lymphatic: no adenopathy Short Stay Diagnosis Discharge Diagnosis-Short Stay Admission Diagnosis Atypical Chest pain CAD HTN HLD ROD NIDDM Tobacco use Final Discharge Diagnosis See Above Conclusion Plan See problem list Clinical Quality Measures AMI/AHF: ASA po Prior to arrival: Yes (81) Assessment/Plan Assessment/Plan Admission Status: Observation (1) Atypical chest pain Status: Acute Assessment & Plan: - Cardiology consulted, appreciate recommendations, meds were adjusted, no further chest pain (2) CAD (coronary artery disease) Status: Chronic Qualifiers: Qualified Codes: I25.118 - Atherosclerotic heart disease of [place] coronary artery with other forms of angina pectoris (3) HTN (hypertension) Status: Chronic Assessment & Plan: - Continue home meds Qualifiers: Qualified Codes: I10 - Essential (primary) hypertension (4) HLD (hyperlipidemia) Status: Chronic Assessment & Plan: - Continue statin Qualifiers: Qualified Codes: E78.5 - Hyperlipidemia, unspecified (5) ROD (obstructive sleep apnea) Status: Chronic (6) Tobacco dependence Status: Chronic Assessment & Plan: - Discussed the importance of smoking cessation YI MULLER MD Nov 04, 2022 11:16
--- NOTE | 2022-11-04 11:18 | Discharge Summary ---
Discharge [facility] Reconcile Patient Problems Problems Reviewed?: Yes Discharge Medications New, Converted or Re-Newed RX: Transmitted to Pharmacy New Medications: Isosorbide Mononitrate (Isosorbide Mononitrate ER) 60 Mg Tab 60 MG PO DAILY, #30 TAB 4 Refills Continued Medications: Acetaminophen (Tylenol Extra Strength) 500 Mg Tablet 1000 MG PO Q8H PRN for PAIN-MILD (1-4), TAB Albuterol Sulfate (Ventolin Hfa) 1 Puff Puff 2 PUFF INH Q4H PRN for SHORTNESS OF BREATH, EA Albuterol Sulfate (Albuterol Sulfate) 2.5 Mg/0.5 Ml Vial.neb 2.5 MG INH Q4H PRN for SHORTNESS OF BREATH, EACH Aspirin (Aspirin EC) 81 Mg Tablet.dr 81 MG PO DAILY, TAB Atorvastatin Calcium (Atorvastatin Calcium) 80 Mg Tablet 80 MG PO DAILY, TAB Budesonide/Formoterol Fumarate (Symbicort 160-4.5 Mcg Inhaler) 160 Mcg-4.5 Mcg/Actuation Hfa.aer.ad 2 PUFF IH BID, EA Buprenorphine (Buprenorphine) 10 Mcg/Hour Patch.tdwk 10 MCG TD SIMIN, PATCH Canagliflozin (Invokana) 100 Mg Tablet 100 MG PO DAILY, TAB Clopidogrel Bisulfate (Clopidogrel) 75 Mg Tablet 75 MG PO DAILY, TAB Diclofenac Sodium (Diclofenac Sodium) 50 Mg Tablet.dr 100 MG PO BID, TAB TAKES 2 (50MG) TABS Diphenhydramine HCl (Benadryl Allergy) 25 Mg Tablet 25 MG PO BID, TAB Docusate Sodium (Stool Softener) 100 Mg Capsule 100 MG PO BID, CAP Dulaglutide (Trulicity) 1.5 Mg/0.5 Ml Pen.injctr 1.5 MG SQ SIMIN, EA Metoprolol Succinate (Metoprolol Succinate) 25 Mg Tab.er.24h 25 MG PO HS, TAB Nitroglycerin (Nitroglycerin) 0.4 Mg Tab.subl 0.4 MG SL UD PRN for CHEST PAIN (ANGINA), #30 TAB Pantoprazole Sodium (Pantoprazole Sodium) 40 Mg Tablet.dr 40 MG PO HS, TAB Tizanidine HCl (Tizanidine HCl) 4 Mg Tablet 2 MG PO BID, TAB TAKES OF A 4MG TAB Patient Instructions Goal/Follow Up Appt: Keep f.u appt with Dr Cedillo 11/08/22 Activity & Diet Discharge Diet: ADA Diet, Cardiac Diet Activity as Tolerated: Yes YI MULLER MD Nov 04, 2022 11:18
[2022-11-04 11:31] VITALS: BP 107/63
== END 2022-11-04 11:16 | disposition home or self-care (01) ==
LOC: EDUNIT# 13:46 → ER 13:48 → CSD 16:04 → UNDOADMOB 16:04 → CSD 16:45 → UNDODISOB 11-04 11:31
PROVIDERS: ADMIT Family Medicine; ATTEND Family Medicine
DX: R07.89 Other chest pain (principal); I25.10 Atherosclerotic heart disease of native coronary artery without angina pectoris; E78.5 Hyperlipidemia, unspecified; G47.33 Obstructive sleep apnea (adult) (pediatric); J44.9 Chronic obstructive pulmonary disease, unspecified; I50.9 Heart failure, unspecified; I11.0 Hypertensive heart disease with heart failure; F17.200 Nicotine dependence, unspecified, uncomplicated; K21.9 Gastro-esophageal reflux disease without esophagitis; Z79.82 Long term (current) use of aspirin; Z79.02 Long term (current) use of antithrombotics/antiplatelets; Z86.73 Personal history of transient ischemic attack (TIA), and cerebral infarction without residual deficits; Z86.79 Personal history of other diseases of the circulatory system; Z90.89 Acquired absence of other organs
CPT/HCPCS: 36415; 71045; 80053; 82550; 82553; 83690; 83735; 83874; 83880; 84484; 85025; 85379; 85610; 85730; 93005; 93041; 94760; 96372